=== PATIENT | female | born 1965 | race Two or more races ===

== ENCOUNTER 2021-04-16 12:15 | Inpatient (IN) | payer OTHER ==
[~2021-04-16] VITALS: Ht 157.5 cm; Wt 90.7 kg
[2021-04-16] MEDS ORDERED: GLIPIZIDE XL5 MG PO (14:57)
[2021-04-16] MEDS ORDERED: ZESTRIL5 MG PO (14:57)
[2021-04-18] MEDS ORDERED: ATORVASTATIN CA20 MG (11:33)
== END 2021-04-20 11:43 | disposition home or self-care (01) | DRG 743 ==
LOC: OB/GYN 04-18 05:30 → O/R 04-18 05:30 → OB/GYN 04-18 09:30
PROVIDERS: ADMIT Obstetrics & Gynecology Gynecologic Oncology; ATTEND Obstetrics & Gynecology Gynecologic Oncology
PROC: 0UT20ZZ Resection of Bilateral Ovaries, Open Approach (ICD-10-PCS; 2021-04-18)
PROC: 0UT70ZZ Resection of Bilateral Fallopian Tubes, Open Approach (ICD-10-PCS; 2021-04-18)
PROC: 0DBU0ZZ Excision of Omentum, Open Approach (ICD-10-PCS; 2021-04-18)
PROC: 0UT90ZZ Resection of Uterus, Open Approach (ICD-10-PCS; principal; 2021-04-18 09:30)
DX: D27.0 Benign neoplasm of right ovary (principal); D27.1 Benign neoplasm of left ovary; N85.01 Benign endometrial hyperplasia; N93.8 Other specified abnormal uterine and vaginal bleeding; I10 Essential (primary) hypertension; E11.9 Type 2 diabetes mellitus without complications; E78.00 Pure hypercholesterolemia, unspecified